=== PATIENT | female | born 1950 | race Caucasian/White ===

== ENCOUNTER 2019-12-13 15:10 | Outpatient (CLI) | payer MEDICARE, SELFPAY ==
[2019-12-16 23:43] LABS: Phenytoin Dilantin Free 1.5 mg/L (1.0-2.0)
== END 2019-12-13 15:11 | disposition home or self-care (01) ==
PROVIDERS: PCP Family Medicine; Visit Provider Family Medicine
DX: G40.909 Epilepsy, unspecified, not intractable, without status epilepticus (principal); Z51.81 Encounter for therapeutic drug level monitoring; Z79.899 Other long term (current) drug therapy
CPT/HCPCS: 36415; 80186

== ENCOUNTER → 2020-02-07 12:15 | Outpatient (CLI) | payer MEDICARE, SELFPAY ==
--- NOTE | ~2020-02-07 | MM_ITS ---
EXAMINATION: MM screening [facility] BI w kendall HISTORY: Screening mammogram TECHNIQUE: Craniocaudal and mediolateral oblique 3-D tomosynthesis images were obtained and synthetic 2-D images were generated. CAD analysis was submitted and interpreted. COMPARISON: 05/01/2018, 01/17/2017, 01/15/2016, 12/09/2013 BREAST PARENCHYMAL COMPOSITION: There are scattered areas of fibroglandular density. FINDINGS: Benign intramammary lymph nodes are stable. Scattered benign-appearing calcifications are p resent. There is no evidence of suspicious mass, calcification, or architectural distortion to sugges t malignancy in either breast. There has been no suspicious interval change. IMPRESSION: 1. No mammographic evidence of malignancy. 2. Recommend routine screening mammography in one year. BI-RADS Category 2: Benign finding(s). Reviewed, dictated and finalized at location A. ROASTER
--- NOTE | ~2020-02-07 | DEXA_ITS ---
Bone Density Report Name: Rhiannon Leon Age: 69 Sex: Female Ethnicity: White Date of : 1950 Indication: osteopenia; height loss; seizure disorder; postmenopausal Referring Provider: Zaida Wadsworth Study: Bone densitometry was performed. Exam Date: February 07, 2020 Accession number: [id number] Bone Density: Region BMD T-score Z-score Classification AP Spine (L1-L4) 0.869 -1.6 0.6 Osteopenia Femoral Neck (Left) 0.664 -1.7 0.2 Osteopenia Total Hip (Left) 0.797 -1.2 0.4 Osteopenia Femoral Neck (Right) 0.603 -2.2 -0.3 Osteopenia Total Hip (Right) 0.739 -1.7 -0.1 Osteopenia Total Hip Mean 0.768 -1.5 0.2 Osteopenia World Health Organization criteria for BMD impression classify patients as: Normal (T-score at or above -1.0), Osteopenia (T-score between -1.0 and -2.5), or Osteoporosis (T-score at or below -2.5). 10-year Fracture Risk(1): Major Osteoporotic Fracture 12% Hip Fracture 2.6% Reported Risk Factors: [place] (), Neck BMD=0.603, BMI=33.3 (1) FRAX(R) Version 3.08. Fracture probability calculated for an untreated patient. Fracture probability may be lower if the patient has received treatment. Previous Exams: Region Exam Age BMD T-score BMD Change BMD Change Date g/cm2 vs Baseline vs Previous AP Spine(L1-L4) 02/07/2020 69 0.869 -1.6 -0.037 -0.049 01/15/2016 65 0.918 -1.2 0.012 -0.018 08/31/2011 61 0.936 -1.0 0.030* 0.030* 12/15/2008 58 0.907 -1.3 Total Hip(Left) 02/07/2020 69 0.797 -1.2 -0.014 0.070 01/15/2016 65 0.726 -1.8 -0.084* -0.043* 08/31/2011 61 0.770 -1.4 -0.041* -0.041* 12/15/2008 58 0.811 -1.1 Total Hip(Right) 02/07/2020 69 0.739 -1.7 -0.054 -0.019 01/15/2016 65 0.758 -1.5 -0.035* -0.031* 08/31/2011 61 0.789 -1.3 -0.004 -0.004 12/15/2008 58 0.793 -1.2 *Denotes significance at 95% confidence level, LSC for AP Spine = 0.022 g/cm2, LSC for Total Hip = 0.027 g/cm2 Clinical Information Provided by Patient: Has used the following medications: Vitamin D Has the following medical conditions: Any Seizure Disorders Patient maximum height was 62 Menopause Age: 51 No regular weight bearing exercise Drinks caffeinated beverages Onset of menses at age 10 Number of children 2 Impression: Bubba mariee
== END ==
PROVIDERS: Visit Provider Family Medicine
DX: Z12.31 Encounter for screening mammogram for malignant neoplasm of breast (principal); Z78.0 Asymptomatic menopausal state; M81.0 Age-related osteoporosis without current pathological fracture; M85.88 Other specified disorders of bone density and structure, other site; M85.852 Other specified disorders of bone density and structure, left thigh; M85.851 Other specified disorders of bone density and structure, right thigh
CPT/HCPCS: 77063; 77067; 77080

== ENCOUNTER → 2022-07-19 13:10 | Outpatient (CLI) | payer MEDICARE, SELFPAY ==
--- NOTE | ~2022-07-19 | MM_ITS ---
EXAMINATION: MM screening [facility] BI w kendall HISTORY: Screening mammogram TECHNIQUE: Craniocaudal and mediolateral oblique 3-D tomosynthesis images were obtained and synthetic 2-D images were generated. CAD analysis was submitted and interpreted. COMPARISON: 02/07/2020, 05/01/2018, 01/13/2017 bilateral screening mammogram examinations BREAST PARENCHYMAL COMPOSITION: There are scattered areas of fibroglandular density. FINDINGS: There is an approximately 4 mm new opacity in the mid to tower outer left breast; diagnosti c left mammogram and left breast ultrasound examination are recommended. There are bilateral axillary tail lymph nodes. There are bilateral benign calcifications. Otherwise there is no evidence of suspicious mass, calcification, or architectural distortion to sugg est malignancy in either breast. There has been no other suspicious interval change. IMPRESSION: 1. .4 mm new opacity in the mid to lower outer left breast 2. Diagnostic left mammogram and left breast ultrasound are recommended BI-RADS Category 0: Incomplete: Needs additional imaging evaluation. Reviewed, dictated and finalized at location A.
--- NOTE | ~2022-07-19 | DEXA_ITS ---
Bone Density Report Name: VINITA GARCIA Age: 71 Sex: Female Ethnicity: White Date of : 1950 Indication: osteopenia; height loss; seizure disorder; postmenopausal Referring Provider: Samantha Fernandez Study: Bone densitometry was performed. Exam Date: July 19, 2022 Accession number: [id number] Bone Density: Region BMD T-score Z-score Classification AP Spine (L1-L4) 0.854 -1.8 0.6 Osteopenia Femoral Neck (Left) 0.639 -1.9 0.1 Osteopenia Total Hip (Left) 0.770 -1.4 0.3 Osteopenia Femoral Neck (Right) 0.621 -2.1 0.0 Osteopenia Total Hip (Right) 0.771 -1.4 0.3 Osteopenia Total Hip Mean 0.771 -1.4 0.3 Osteopenia World Health Organization criteria for BMD impression classify patients as: Normal (T-score at or above -1.0), Osteopenia (T-score between -1.0 and -2.5), or Osteoporosis (T-score at or below -2.5). 10-year Fracture Risk(1): Major Osteoporotic Fracture 12% Hip Fracture 2.8% Reported Risk Factors: [place] (), Neck BMD=0.621, BMI=34.5 (1) FRAX(R) Version 3.08. Fracture probability calculated for an untreated patient. Fracture probability may be lower if the patient has received treatment. Previous Exams: Region Exam Age BMD T-score BMD Change BMD Change Date g/cm2 vs Baseline vs Previous AP Spine(L1-L4) 07/19/2022 71 0.854 -1.8 -0.052 -0.015 02/07/2020 69 0.869 -1.6 -0.037 -0.049 01/15/2016 65 0.918 -1.2 0.012 -0.018 08/31/2011 61 0.936 -1.0 0.030* 0.030* 12/15/2008 58 0.907 -1.3 Total Hip(Left) 07/19/2022 71 0.770 -1.4 -0.041* -0.027 02/07/2020 69 0.797 -1.2 -0.014 0.070 01/15/2016 65 0.726 -1.8 -0.084* -0.043* 08/31/2011 61 0.770 -1.4 -0.041* -0.041* 12/15/2008 58 0.811 -1.1 Total Hip(Right) 07/19/2022 71 0.771 -1.4 -0.022 0.032 02/07/2020 69 0.739 -1.7 -0.054 -0.019 01/15/2016 65 0.758 -1.5 -0.035* -0.031* 08/31/2011 61 0.789 -1.3 -0.004 -0.004 12/15/2008 58 0.793 -1.2 *Denotes significance at 95% confidence level, LSC for AP Spine = 0.022 g/cm2, LSC for Total Hip = 0.027 g/cm2 Clinical Information Provided by Patient: Has used the following medications: Vitamin D, Calcium Has the following medical conditions: Any Seizure Disorders Patient maximum height was 62 Menopause Age: 51 No regul
== END ==
PROVIDERS: PCP Nurse Practitioner; Visit Provider Nurse Practitioner
DX: Z12.31 Encounter for screening mammogram for malignant neoplasm of breast (principal); R92.8 Other abnormal and inconclusive findings on diagnostic imaging of breast; Z78.0 Asymptomatic menopausal state; M85.89 Other specified disorders of bone density and structure, multiple sites
CPT/HCPCS: 77063; 77067; 77080

== ENCOUNTER → 2022-08-15 07:40 | Outpatient (CLI) | payer MEDICARE, SELFPAY ==
--- NOTE | ~2022-08-15 | MMUS_ITS ---
EXAMINATION: MM diagnostic [facility] LT w kendall, US breast LT limited HISTORY: Possible left breast mass on screening mammogram TECHNIQUE: Additional 3-D tomosynthesis images of the left breast were performed and synthetic 2-D im ages were generated. CAD analysis was submitted and interpreted. High resolution limited left breast ultrasound was performed. COMPARISON: 07/19/2022, 02/07/2020, 05/01/2018 FINDINGS: MAMMOGRAPHIC FINDINGS: There is a 3 mm round, obscured, equal density mass in the middle third of the outer breast at the 3: 00 location, 5 cm from the nipple. ULTRASOUND: There is a 3 mm round, circumscribed, hypoechoic mass with no posterior features or internal vascular ity at the 3:00 location, 5 cm from the nipple. IMPRESSION: 1. Probably benign left breast mass. 2. Recommend 6 month follow-up left diagnostic mammogram and ultrasound. BI-RADS category 3, probably benign findings. Reviewed, dictated and finalized at location A. IMPRESSION: 1. Probably benign left breast mass. 2. Recommend 6 month follow-up left diagnostic mammogram and ultrasound. BI-RADS category 3, probably benign findings.
== END ==
PROVIDERS: PCP Family Medicine; Visit Provider Nurse Practitioner
DX: R92.8 Other abnormal and inconclusive findings on diagnostic imaging of breast (principal)
CPT/HCPCS: 76642; 77061; 77065; G0279

== ENCOUNTER → 2023-02-13 08:14 | Outpatient (CLI) | payer MEDICARE, SELFPAY ==
--- NOTE | ~2023-02-13 | MMUS_ITS ---
EXAMINATION: MM diagnostic jovana LT w kendall, US breast LT limited HISTORY: Six-month follow-up of probably benign left breast mass 3:00 5 cm from nipple TECHNIQUE: Full field and spot ML, MLO and CC 3-D tomosynthesis images of the left breast were perfor med and synthetic 2-D images were generated. CAD analysis was submitted and interpreted. High resolut ion targeted left breast ultrasound examination at 3:00 5 cm from nipple was performed. COMPARISON: 08/15/2022 diagnostic left mammogram and limited left breast ultrasound 07/19/2022, 02/07/2020 bilateral screening mammogram examinations BREAST PARENCHYMAL COMPOSITION: There are scattered areas of fibroglandular density. FINDINGS: MAMMOGRAPHIC FINDINGS: Stable left axillary and left upper outer quadrant intramammary lymph nodes are noted. No suspicious mass, architectural distortion, malignant calcification, skin thickening or retraction or significant new or developing density of either breast is detected. ULTRASOUND: 3:00 5 cm from nipple: There are 2 contiguous hypoechoic lesions, each measuring approximately 3 mm, with suggestion of through transmission, no internal vascularity, likely benign, possibly cysts. 6 mo nth follow-up targeted left breast ultrasound imaging at 3:00 5 cm from the nipple is recommended. IMPRESSION: 1. Probably benign cysts at 3:00 5 cm from nipple 2. Six-month targeted left 3:00 breast ultrasound follow-up is recommended BI-RADS category 3, probably benign findings. Reviewed, dictated and finalized at location A. NG HAND IMPRESSION: 1. Probably benign cysts at 3:00 5 cm from nipple 2. Six-month targeted left 3:00 breast ultrasound follow-up is recommended BI-RADS category 3, probably benign findings.
== END ==
PROVIDERS: PCP Family Medicine; Visit Provider Nurse Practitioner Family
DX: N63.20 Unspecified lump in the left breast, unspecified quadrant (principal); R92.8 Other abnormal and inconclusive findings on diagnostic imaging of breast
CPT/HCPCS: 76642; 77061; 77065; G0279

== ENCOUNTER 2023-09-18 08:17 | Outpatient (CLI) | payer MEDICARE, SELFPAY ==
--- NOTE | ~2023-09-18 | MMUS_ITS ---
EXAMINATION: MM diagnostic [facility] BI w kendall, US breast LT limited HISTORY: Right breast calcifications, probable benign left breast lesion TECHNIQUE: 3-D tomosynthesis images of the bilateral breasts were performed and synthetic 2-D images were generated. CAD analysis was submitted and interpreted. High resolution limited left breast ultra sound was performed. COMPARISON: 02/13/2023, 08/15/2022 FINDINGS: MAMMOGRAPHIC FINDINGS: There are scattered fibroglandular densities. Parenchymal pattern of the breasts is unchanged. There are stable intramammary lymph nodes bilaterally. There are bilateral benign calcifications, more exte nsive in the right breast than the left, unchanged. No suspicious mass lesion, suspicious made of jie cification, or suspicious distortion are identified. ULTRASOUND: Sonographic imaging of the 3:00 position left breast, 5 cm from the nipple, demonstrates no sonograph ic abnormality. The small hypoechoic lesions seen on prior exam in this region are no longer visualiz ed. IMPRESSION: No evidence for malignancy. Probable benign sonographic lesions in the left breast seen on prior exa m are no longer identified. Return to annual screening mammography advised. BI-RADS Category 2: Benign finding(s). Reviewed, dictated and finalized at location M. IMPRESSION: No evidence for malignancy. Probable benign sonographic lesions in the left br east seen on prior exam are no longer identified. Return to annual screening ma mmography advised. BI-RADS Category 2: Benign finding(s).
== END 2023-09-18 08:18 ==
PROVIDERS: PCP Family Medicine; Visit Provider Nurse Practitioner Family
DX: N63.25 Unspecified lump in the left breast, overlapping quadrants (principal)
CPT/HCPCS: 76642; 77062; 77066; G0279

== ENCOUNTER 2024-10-07 09:12 | Outpatient (CLI) | payer MEDICARE, SELFPAY ==
--- NOTE | ~2024-10-07 | DEXA_ITS ---
Bone Density Report Name: VINITA GARCIA Age: 74 Sex: Female Ethnicity: White Date of : 1950 Indication: osteopenia; height loss; seizure disorder; Referring Provider: Amanda Palomo Study: Bone densitometry was performed. Exam Date: October 07, 2024 Accession number: [id number] Bone Density: Region BMD T-score Z-score Classification AP Spine(L1-L4) 0.932 -1.0 1.4 Normal Femoral Neck (Left) 0.586 -2.4 -0.2 Osteopenia Total Hip (Left) 0.733 -1.7 0.1 Osteopenia Femoral Neck (Right) 0.613 -2.1 0.0 Osteopenia Total Hip (Right) 0.752 -1.6 0.3 Osteopenia Total Hip Mean 0.743 -1.7 0.2 Osteopenia World Health Organization criteria for BMD impression classify patients as: Normal (T-score at or above -1.0), Osteopenia (T-score between -1.0 and -2.5), or Osteoporosis (T-score at or below -2.5). 10-year Fracture Risk(1): Major Osteoporotic Fracture 15% Hip Fracture 4.3% Reported Risk Factors: [place] (), Neck BMD=0.586, BMI=34.7 (1) FRAX(R) Version 3.08. Fracture probability calculated for an untreated patient. Fracture probability may be lower if the patient has received treatment. Previous Exams: -- Region Exam Age BMD T-score BMD Change BMD Change Date g/cm2 vs Baseline vs Previous -- AP Spine (L1-L4) 10/07/2024 74 0.932 -1.0 2.8%# 9.1%* 07/19/2022 71 0.854 -1.8 -5.8%# -1.7%# 02/07/2020 69 0.869 -1.6 -4.1%# -5.3%# 01/15/2016 65 0.918 -1.2 1.3% -1.9% 08/31/2011 61 0.936 -1.0 3.3%* 3.3%* 12/15/2008 58 0.907 -1.3 Total Hip(Left) 10/07/2024 74 0.733 -1.7 -9.5%* -4.7%* 07/19/2022 71 0.770 -1.4 -5.0%* -3.3%# 02/07/2020 69 0.797 -1.2 -1.7%# 9.7%# 01/15/2016 65 0.726 -1.8 -10.4%* -5.6%* 08/31/2011 61 0.770 -1.4 -5.1%* -5.1%* 12/15/2008 58 0.811 -1.1 Total Hip(Right) 10/07/2024 74 0.752 -1.6 -5.1%* -2.4% 07/19/2022 71 0.771 -1.4 -2.8% 4.3%# 02/07/2020 69 0.739 -1.7 -6.9%# -2.6%# 01/15/2016 65 0.758 -1.5 -4.4%* -3.9%* 08/31/2011 61 0.789 -1.3 -0.5% -0.5% 12/15/2008 58 0.793 -1.2 -- *Denotes significance at 95% confidence level, LSC for AP Spine = 0.022 g/cm2, LSC for Total Hip = 0.027 g/cm2 # Denotes dissimilar scan types or analysis methods Clinical Information Provided by Patient: Has used the following medications: Vitamin D, Calcium Has the following medical conditions: Any Seizure Disorders Patient maximum height was 62 Menopause Age: 51 No regular weight bearing exercise Drinks caffeinated beverages Onset of menses at age 12 Number of children 2 Impression: The patient has low bone mass, based on the Left Femoral Neck T-score. The patient has an estimated ten-year risk of hip fracture of 4.3% and an estimated ten-year risk of major fracture of 15%, based on the WHO FRAX algorithm. The BMD for the Total Hip(Left) decreased, changing by -4.7% since the last DXA exam. Discussion: BONE DENSITY IS LOW AT ONE OR MORE SKELETAL SITES. THE PATIENT'S BMD AND CLINICAL RISK FACTORS CONTRIBUTE TO THIS PATIENT'S INCREASED RISK OF FRACTURE. This patient's lowest T-score is low at one or more skeletal sites. It meets the World Health Organization's (WHO) criteria for ?low bone mass? (T-score between -1.0 and -2.5). The patient's 10-year risk of hip fracture as calculated by FRAX exceeds the threshold where pharmacological therapy is recommended by the National Osteoporosis Foundation (NOF). However, all treatment decisions require clinical judgment and consideration of individual patient factors, including patient preferences, comorbidities, previous drug use, risk factors not captured in the FRAX model (e.g., frailty, falls, vitamin D deficiency, increased bone turnover, interval significant decline in bone density) and possible under or overestimation of fracture risk by FRAX. The patient should follow a healthful lifestyle (good nutrition with adequate calcium and vitamin D, and appropriate weight-bearing exercise). Follow-Up: Consider a repeat BMD and Vertebral Fracture Assessment (VFA) exam in 2 years or sooner if medically necessary, to reassess this patient's status. Reported by: LENA on 10/07/2024 9:37:00 AM. Reviewed, dictated and finalized at location A.
== END 2024-10-07 09:13 | disposition home or self-care (01) ==
LOC: MICIMG 09:13
PROVIDERS: PCP Nurse Practitioner Family; Visit Provider Nurse Practitioner Family
DX: M85.89 Other specified disorders of bone density and structure, multiple sites (principal); Z78.0 Asymptomatic menopausal state
CPT/HCPCS: 77080

== ENCOUNTER 2024-11-07 13:29 | Outpatient (CLI) | payer MEDICARE, SELFPAY ==
--- NOTE | ~2024-11-07 | MM_ITS ---
EXAMINATION: MM screening [facility] BI w kendall HISTORY: Screening TECHNIQUE: Craniocaudal and mediolateral oblique 3-D tomosynthesis images were obtained and synthetic 2-D images were generated. CAD analysis was submitted and interpreted. COMPARISON: Comparison to multiple prior studies sequentially, with oldest reviewed study dated 07/2018. BREAST PARENCHYMAL COMPOSITION: Not dense: There are scattered areas of fibroglandular density. FINDINGS: There are increasing linear and branching calcifications located centrally in the right sudarshan ast. The left breast is stable without evidence for malignancy. IMPRESSION: 1. Increasing clustered linear and branching calcifications central aspect of the right breast. 2. Magnification views are recommended. BI-RADS Category 0: Incomplete: Needs additional imaging evaluation. Reviewed, dictated and finalized at location A. IMPRESSION: 1. Increasing clustered linear and branching calcifications central aspect of t he right breast. 2. Magnification views are recommended. BI-RADS Category 0: Incomplete: Needs additional imaging evaluation.
== END 2024-11-07 13:30 | disposition home or self-care (01) ==
LOC: MICIMG 13:29
PROVIDERS: PCP Nurse Practitioner Family; Visit Provider Nurse Practitioner Family
DX: Z12.31 Encounter for screening mammogram for malignant neoplasm of breast (principal); R92.8 Other abnormal and inconclusive findings on diagnostic imaging of breast
CPT/HCPCS: 77063; 77067

== ENCOUNTER 2024-12-17 08:14 | Outpatient (CLI) | payer MEDICARE, SELFPAY ==
--- NOTE | ~2024-12-17 | MM_ITS ---
EXAMINATION: MM diagnostic jovana RT w kendall INDICATION: 74-year old female; BI-RADS 0, callback to evaluate Right breast calcifications COMPARISON: 11/07/2024 TECHNIQUE: Digital breast tomosynthesis True lateral view and magnification CC and ML views of Right breast were obtained with computer-aided detection to assist in interpretation of the study. FINDINGS: There are scattered areas of fibroglandular density. Large, rodlike calcifications that follows the breast duct system are identified in the area of concern. This findings are compatible with secretory calcifications which indicates a benign condition. IMPRESSION: Right breast benign secretory calcifications. No further investigation necessary. RECOMMENDATION: Annual screening mammography in 12 months BI-RADS 2, BENIGN Reviewed, dictated and finalized at location C. IMPRESSION: Right breast benign secretory calcifications. No further investigation necessar y. RECOMMENDATION: Annual screening mammography in 12 months BI-RADS 2, BENIGN
== END 2024-12-17 08:15 | disposition home or self-care (01) ==
LOC: MICIMG 08:14
PROVIDERS: PCP Nurse Practitioner Family; Visit Provider Nurse Practitioner Family
DX: R92.1 Mammographic calcification found on diagnostic imaging of breast (principal); R92.8 Other abnormal and inconclusive findings on diagnostic imaging of breast
CPT/HCPCS: 77061; 77065; G0279